=== PATIENT | male | born 1955 | race African-American/Black ===

== ENCOUNTER 2016-08-18 11:26 | Emergency (ER) | payer OTHER, MEDICARE ==
[~2016-08-18] VITALS: Ht 172.7 cm; Wt 100.0 kg
[~2016-08-18 11:26] MED LIST: LISI-357 PO; PHEN12.5 PR
[2016-08-18 11:29] VITALS: BP 130/86; PULSE 61; RESP 17; TEMP 98.2; O2SAT 98
[2016-08-18 11:44] VITALS: O2SAT 99
--- NOTE | 2016-08-18 12:04 | PD ---
HPI Chief Complaint: Complaint Time Seen by Provider: 11:39 Travel History International Travel<30 days: No Contact w/Intl Traveler<30days: No Traveled to known affect area: No History of Present Illness HPI 61 y/o male presents with intermittent bleeding and clots in his urine since his procedure last week. He states they removed a flap from his prostate to help him urinate. He states today the bleeding got heavier and he felt like he was gonna pass out. He states Dr. sandhu did the procedure and he followed with him on and everything was going okay. He states that he had the catheter removed a couple days after the procedure. He states that he has no other concurrent complaints. He states he is able to urinate but there is a large amount of blood. PFSH Past Medical History Arthritis: Yes Heart Rhythm Problems: No Cancer: No Cardiac Catheterization: No Cardiovascular Problems: No High Cholesterol: No Congestive Heart Failure: No Diabetes: No Diminished Hearing: No Endocrine: No Gastrointestinal Disorders: Yes (GERD, REFLUX) GERD: Yes Glaucoma: Yes Genitourinary: Yes (BPH) Hepatitis: No Hiatal Hernia: Yes Hypertension: Yes Immune Disorder: No Musculoskeletal: Yes (OSTEOARTHRITIS) Neurologic: No Psychiatric: No Reproductive: No Respiratory: Yes (ASTHMA CHILD) Myocardial Infarction: No Thyroid Disease: No Tetanus Vaccination: < 5 Years Influenza Vaccination: No Past Surgical History Abdominal Surgery: No AICD: No Body Medical Devices: SCREWS LT ELBOW Cardiac Surgery: No Coronary Artery Bypass Graft: No Ear Surgery: No Endocrine Surgery: No Eye Surgery: Yes (CARTACT LT, GLAUCOMA LT EYE) Genitourinary Surgery: Yes (PROSTATE BIOPSY, TURP) Gynecologic Surgery: No Joint Replacement: No Oral Surgery: No Pacemaker: No Thoracic Surgery: No Other Surgery: Yes Social History Alcohol Use: No Tobacco Use: No Substance Use: No Allergies-Medications (Allergen,Severity, Reaction): Coded Allergies: No Known Allergies (Verified , 08/18/16) Reported Meds & Prescriptions Reported Meds & Active Scripts Active Macrobid (Nitrofurantoin Monoh/Nitrofur Macro) 100 Mg Cap 100 Mg PO BID 7 Days Review of Systems Except as stated in HPI: all other systems reviewed are Neg Physical Exam Narrative GENERAL: Well-nourished, well-developed patient. SKIN: Warm and dry. HEAD: Normocephalic and atraumatic. EYES: No injection or drainage. ENT: No nasal drainage noted. NECK: Supple, trachea midline. CARDIOVASCULAR: Regular rate and rhythm RESPIRATORY: No increased effort. No accessory muscle use. GASTROINTESTINAL: Abdomen soft, non-tender, nondistended. NEUROLOGICAL: Awake and alert. Moves all extremities. Normal speech. Data Data Last Documented VS Vital Signs Date Time Temp Pulse Resp B/P Pulse Ox O2 Delivery O2 Flow Rate FiO2 08/18/16 13:18 63 16 132/83 99 08/18/16 11:44 Room Air 08/18/16 11:29 98.2 Orders Complete Blood Count With Diff (08/18/16 11:43) Basic Metabolic Panel (Bmp) (08/18/16 11:43) Act Partial Throm Time (Ptt) (08/18/16 11:43) Prothrombin Time / Inr (Pt) (08/18/16 11:43) Iv Access Insert/Monitor (08/18/16 11:43) Ecg Monitoring (08/18/16 11:43) Oximetry (08/18/16 11:43) Urinalysis - C+S If Indicated (08/18/16 11:46) Urine Culture (08/18/16 11:00) Labs Laboratory Tests Test 08/18/16 08/18/16 11:00 12:00 Urine Color YELLOW Urine Turbidity CLEAR Urine pH 5.5 Urine Specific [place] 1.013 Urine Protein 30 mg/dL Urine Glucose (UA) NEG mg/dL Urine Ketones NEG mg/dL Urine Occult Blood LARGE Urine Nitrite NEG Urine Bilirubin NEG Urine Urobilinogen LESS THAN 2.0 MG/DL Urine Leukocyte Esterase LARGE Urine RBC /hpf Urine WBC 56 /hpf Urine Bacteria OCC /hpf Microscopic Urinalysis Comment CULTURE INDICATED White Blood Count 6.9 TH/MM3 Red Blood Count 4.31 MIL/MM3 Hemoglobin 13.5 GM/DL Hematocrit 39.6 % Mean Corpuscular Volume 92.0 FL Mean Corpuscular Hemoglobin 31.3 PG Mean Corpuscular Hemoglobin 34.0 % Concent Red Cell Distribution Width 12.8 % Platelet Count 359 TH/MM3 Mean Platelet Volume 6.4 FL Neutrophils (%) (Auto) 59.6 % Lymphocytes (%) (Auto) 28.5 % Monocytes (%) (Auto) 8.6 % Eosinophils (%) (Auto) 2.6 % Basophils (%) (Auto) 0.7 % Neutrophils # (Auto) 4.1 TH/MM3 Lymphocytes # (Auto) 2.0 TH/MM3 Monocytes # (Auto) 0.6 TH/MM3 Eosinophils # (Auto) 0.2 TH/MM3 Basophils # (Auto) 0.1 TH/MM3 CBC Comment DIFF FINAL Differential Comment Prothrombin Time 10.8 SEC Prothromb Time International 1.0 RATIO Ratio Activated Partial 28.0 SEC Thromboplast Time Sodium Level 139 MEQ/L Potassium Level 4.3 MEQ/L Chloride Level 106 MEQ/L Carbon Dioxide Level 28.0 MEQ/L Anion Gap 5 MEQ/L Blood Urea Nitrogen 19 MG/DL Creatinine 1.66 MG/DL Estimat Glomerular Filtration 51 ML/MIN Rate Random Glucose 99 MG/DL Calcium Level 9.0 MG/DL [facility] Medical Decision Making Medical Screen Exam Complete: Yes Emergency Medical Condition: Yes Medical Record Reviewed: Yes (past history confirmed) Interpretation(s) CBC & BMP Diagram 08/18/16 12:00 ua with uti Differential Diagnosis UTI, postop bleeding, renal failure, stone Narrative Course Will check blood work, urinalysis and discuss with his urologist ed workup with uti, able to urinate her on own without difficulty, labs and vitals stable, Patient denies any new complaints, all questions answered. Patient knows that follow up is incumbent on them and to return to the emergency room immediately if new or worsening symptoms develop. Patient given strict return precautions, vitals reviewed and are normal, agrees to further workup as an outpatient. Physician Communication Physician Communication dr kaur states if patient able to urinate no need for catheter. If patient cannot urinate he can have catheter placed and follow in the office tomorrow if everything looks okay. Diagnosis Primary Impression: UTI (urinary tract infection) Qualified Code: N39.0 - Urinary tract infection with hematuria, site unspecified Patient Instructions: General Instructions Additional Instructions: return as needed, follow with urologist tommorrow, tylenol as needed Med/Other Pt SpecificInfo: Prescription(s) given Scripts Nitrofurantoin Monohydrate Macrocrystals (Macrobid)100 Mg [id number] Mg PO BID 7 Days Prov:Andreia Deutsch MD 08/18/16 Disposition: 01 DISCHARGE HOME Condition: Stable Andreia Deutsch MD Aug 18, 2016 12:04
[2016-08-18 12:15] LABS: AUTOMATED NEUTROPHIL # 4.1 TH/MM3 (1.8-7.7); BASOPHIL # 0.1 TH/MM3 (0-0.2); BASOPHIL % 0.7 % (0.0-2.0); EOSINOPHIL # 0.2 TH/MM3 (0-0.4); EOSINOPHIL % 2.6 % (0.0-4.0); HEMATOCRIT 39.6 % (39.0-51.0); HEMO FLAGS DIFF FINAL; LYMPH % 28.5 % (9.0-44.0); MEAN CORPUSCULAR HEMOGLOBIN 31.3 PG (27.0-34.0); MONO % 8.6 % (0.0-8.0); NEUT % 59.6 % (16.0-70.0); PLATELET COUNT 359 TH/MM3 (150-450); RED BLOOD COUNT 4.31 MIL/MM3 (4.50-5.90); RED CELL DISTRIBUTION WIDTH 12.8 % (11.6-17.2); WHITE BLOOD COUNT 6.9 TH/MM3 (4.0-11.0)
[2016-08-18 12:23] LABS: PROTHROMBIN TIME - PATIENT 10.8 SEC (9.8-11.6)
[2016-08-18 12:40] LABS: BACTERIA, URINE OCC /hpf; BLOOD, URINE LARGE (NEG); COMMENT (UR) CULTURE INDICATED; CULTURE IF INDICATED CULTURE INDICATED; GLUCOSE,URINE NEG (NEG); KETONE, URINE NEG (NEG); NITRITE,URINE NEG (NEG); PH, URINE 5.5 (5.0-8.5); URINE COLOR YELLOW (YELLW/STRAW)
[2016-08-18 12:46] LABS: POTASSIUM 4.3 MEQ/L (3.5-5.1)
[2016-08-18] MEDS ORDERED: MACR100C2 PO (12:58)
[2016-08-18 13:18] VITALS: BP 132/83
== END 2016-08-18 13:20 | disposition home or self-care (01) ==
LOC: NEPE 11:26
DX: N39.0 Urinary tract infection, site not specified (principal); R31.9 Hematuria, unspecified
CPT/HCPCS: 80048; 81001; 85025; 85610; 85730; 87086; 99283

== ENCOUNTER 2016-10-06 04:58 | Emergency (ER) | payer MEDICARE, OTHER ==
[~2016-10-06] VITALS: Ht 172.7 cm; Wt 90.0 kg
[~2016-10-06 04:58] MED LIST changes: -LISI-357 PO; +MACR100C2 PO; -PHEN12.5 PR
[2016-10-06 05:00] VITALS: BP 172/79; PULSE 56; RESP 18; TEMP 98.2; O2SAT 95
[2016-10-06 05:17] VITALS: BP 158/76; PULSE 65; RESP 20; O2SAT 98
[2016-10-06] MEDS ORDERED: AMLO5TAB2 PO (05:24)
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
[2016-10-06] MEDS ORDERED: SODIUM CHLORIDE 0.9% FLUSH 10 ML FLUSH IVF PRN (05:30)
[2016-10-06] MEDS ORDERED: ONDANSETRON HCL 4 MG/2 ML VIAL IVP ONE (05:30)
[2016-10-06] MEDS ORDERED: HYDROmorphone HCL PF 1 MG/ML VIAL IVS ONE (05:30)
[2016-10-06 05:37] LABS: AUTOMATED NEUTROPHIL # 2.5 TH/MM3 (1.8-7.7); BASOPHIL % 0.4 % (0.0-2.0); EOSINOPHIL # 0.1 TH/MM3 (0-0.4); EOSINOPHIL % 2.1 % (0.0-4.0); HEMATOCRIT 39.6 % (39.0-51.0); HEMO FLAGS DIFF FINAL; LYMPH % 43.1 % (9.0-44.0); LYMPHOCYTE # 2.5 TH/MM3 (1.0-4.8); MEAN CELL VOLUME 90.7 FL (80.0-100.0); MEAN CORPUSCULAR HEMOGLOBIN 32.1 PG (27.0-34.0); MEAN CORPUSCULAR HGB CONC 35.4 % (32.0-36.0); MONO % 12.2 % (0.0-8.0); NEUT % 42.2 % (16.0-70.0); PLATELET COUNT 301 TH/MM3 (150-450); RED BLOOD COUNT 4.36 MIL/MM3 (4.50-5.90); RED CELL DISTRIBUTION WIDTH 12.6 % (11.6-17.2); WHITE BLOOD COUNT 5.9 TH/MM3 (4.0-11.0)
[2016-10-06 05:48] LABS: BICARBONATE 27.5 MEQ/L (21.0-32.0); POTASSIUM 3.9 MEQ/L (3.5-5.1)
--- NOTE | 2016-10-06 06:13 | RADRPT ---
EXAM DATE/TIME: 10/06/2016 05:40 [facility] COMPARISON: No previous studies available for comparison. INDICATIONS : Patient was woken up by numbness and pain in left arm. Pain starts in shoulder and radiates down thro ugh elbow. MEDICAL HISTORY : None. SURGICAL HISTORY : Elbow. ENCOUNTER: Initial ACUITY: 1 day PAIN SCORE: 10/10 LOCATION: Left Shoulder. FINDINGS: Multiple view examination of the left shoulder demonstrates no evidence of fracture or dislocation. The glenohumeral and acromioclavicular joints are maintained. There is normal range of motion betwee n internal and external rotation. Bony mineralization is normal. CONCLUSION: Normal examination for a patient of this age. Raymundo Vieira MD on October 06, 2016 at 6:11 Board Certified Radiologist. This report was verified electronically.
--- NOTE | 2016-10-06 06:14 | RADRPT ---
EXAM DATE/TIME: 10/06/2016 05:50 [facility] COMPARISON: No previous studies available for comparison. INDICATIONS : Patient was woken up by numbness and pain in left arm. Pain starts in shoulder and radiates down thro ugh elbow. MEDICAL HISTORY : None. SURGICAL HISTORY : Elbow. ENCOUNTER: Initial ACUITY: 1 day PAIN SCORE: 10/10 LOCATION: Left Elbow. FINDINGS: Multiple view examination of the left elbow demonstrates no soft tissue swelling, joint effusion, or fracture. The osseous structures are in normal alignment. Bony mineralization is normal. CONCLUSION: 1. No acute findings. Surgical anchor overlies distal humerus. Enthesopathic changes at the medial an d lateral epicondyles and the olecranon. Raymundo Vieira MD on October 06, 2016 at 6:12 Board Certified Radiologist. This report was verified electronically.
--- NOTE | 2016-10-06 06:14 | RADRPT ---
EXAM DATE/TIME: 10/06/2016 05:43 [facility] COMPARISON: No previous studies available for comparison. INDICATIONS : Patient was woken up by numbness and pain in left arm. Pain starts in shoulder and radiates down thro ugh elbow. MEDICAL HISTORY : None. SURGICAL HISTORY : None. Elbow. ENCOUNTER: Initial ACUITY: 1 day PAIN SCORE: 10/10 LOCATION: Left Humerus. FINDINGS: Two view examination of the left humerus demonstrates no evidence of fracture or dislocation. Bony m ineralization is normal. The soft tissue structures are intact. CONCLUSION: 1. No acute findings. Surgical anchor projecting over distal humerus. Raymundo Vieira MD on October 06, 2016 at 6:12 Board Certified Radiologist. This report was verified electronically.
[2016-10-06] MEDS ORDERED: METOCLOPRAMIDE HCL 10 MG/2 ML VIAL IV PUSH ONE (06:15)
[2016-10-06] MEDS ORDERED: HYDR-3533 PO (06:26)
[2016-10-06 06:32] VITALS: BP 137/69
--- NOTE | 2016-10-06 16:55 | EKG ---
Date Performed: 10/06/2016 Time Performed: 05:12:47 PTAGE: 61 years EKG: SINUS BRADYCARDIA WITH SINUS ARRHYTHMIA BORDERLINE ECG PREVIOUS TRACING : 03/06/2013 04.36 Compared to prior tracing no significant change DOCTOR: Bessy Ruiz Interpretating Date/Time 10/06/2016 16:52:01
== END 2016-10-06 06:38 | disposition home or self-care (01) ==
LOC: NEPC 04:58
DX: M25.512 Pain in left shoulder (principal); M25.612 Stiffness of left shoulder, not elsewhere classified; M25.622 Stiffness of left elbow, not elsewhere classified; R94.31 Abnormal electrocardiogram [ECG] [EKG]; I10 Essential (primary) hypertension; Z87.39 Personal history of other diseases of the musculoskeletal system and connective tissue; Z87.19 Personal history of other diseases of the digestive system; Z86.69 Personal history of other diseases of the nervous system and sense organs; Z87.438 Personal history of other diseases of male genital organs
CPT/HCPCS: 73030; 73060; 73080; 80048; 85025; 93005; 96374; 96375; 99283; J1170; J2405; J2765

== ENCOUNTER 2017-02-23 09:10 | Emergency (ER) | payer OTHER ==
[~2017-02-23] VITALS: Ht 175.3 cm; Wt 100.0 kg
[~2017-02-23 09:10] MED LIST changes: +AMLO5TAB2 PO; +HYDR-3533 PO; -MACR100C2 PO
[2017-02-23 09:12] VITALS: BP 148/76; PULSE 65; RESP 13; TEMP 97.2; O2SAT 95
--- NOTE | 2017-02-23 10:08 | RADRPT ---
EXAM DATE/TIME: 02/23/2017 09:57 [facility] COMPARISON: ELBOW LEFT COMPLETE (4 VWS), October 06, 2016, 5:50. INDICATIONS : Left posterior ankle pain, denies injury MEDICAL HISTORY : Previous left ankle fracture SURGICAL HISTORY : None. ENCOUNTER: Initial ACUITY: 1 day PAIN SCORE: 8/10 LOCATION: Left ankle FINDINGS: There is an old, healed fracture of the distal left fibula. There are extensive degenerative changes in the lateral compartment of the ankle. There are mild degenerative changes seen medially. There is depression of the talar dome on the lateral exam suggesting old fracture of the talus as wel l. There are moderate degenerative changes within the ankle. CONCLUSION: 1. Old, healed fracture of the lateral malleolus. 2. Moderate degenerative changes in the ankle with depression of the talar dome suggesting old talar fracture as well. Isidro Gaxiola MD on February 23, 2017 at 10:05 Board Certified Radiologist. This report was verified electronically.
--- NOTE | 2017-02-23 10:17 | PD ---
HPI Chief Complaint: Pain: Acute or Chronic Time Seen by Provider: 09:34 Travel History International Travel<30 days: No Contact w/Intl Traveler<30days: No Traveled to known affect area: No History of Present Illness HPI 62-year-old Afro-Indian male presents to emergency Department with onset pain and stiffness in the left ankle and heel over the past 2 days. Patient has previous history of fracture to this ankle years ago. Patient denies any specific injury at this time. Patient denies history of gout. He denies warmth , fever, chills, or other symptoms. 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 Patient has history of bilateral pes planus. Patient has no known drug allergies PFSH Past Medical History Arthritis: Yes Heart Rhythm Problems: No Cancer: No Cardiac Catheterization: No Cardiovascular Problems: No High Cholesterol: No Congestive Heart Failure: No Diabetes: No Diminished Hearing: No Endocrine: No Gastrointestinal Disorders: Yes (GERD, REFLUX) GERD: Yes Glaucoma: Yes Genitourinary: Yes (BPH) Hepatitis: No Hiatal Hernia: Yes Hypertension: Yes Immune Disorder: No Musculoskeletal: Yes (OSTEOARTHRITIS) Neurologic: No Psychiatric: No Reproductive: No Respiratory: Yes (ASTHMA CHILD) Myocardial Infarction: No Thyroid Disease: No Past Surgical History Abdominal Surgery: No AICD: No Body Medical Devices: SCREWS LT ELBOW Cardiac Surgery: No Coronary Artery Bypass Graft: No Ear Surgery: No Endocrine Surgery: No Eye Surgery: Yes (CARTACT LT, GLAUCOMA LT EYE) Genitourinary Surgery: Yes (PROSTATE BIOPSY, TURP) Gynecologic Surgery: No Joint Replacement: No Oral Surgery: No Pacemaker: No Thoracic Surgery: No Other Surgery: Yes Social History Alcohol Use: No Tobacco Use: No Substance Use: No Allergies-Medications (Allergen,Severity, Reaction): Coded Allergies: No Known Allergies (Verified , 10/06/16) Reported Meds & Prescriptions Reported Meds & Active Scripts Active Mapap Extra Strength (Acetaminophen) 500 Mg Tab 1,000 Mg PO Q6HR PRN Prednisone 20 Mg Tab 20 Mg PO BID 5 Days Lortab (Hydrocodone-Acetaminophen) 5-325 Mg Tab 1-2 Tab PO Q6H PRN Reported Amlodipine (Amlodipine Besylate) 5 Mg Tab 5 Mg PO DAILY Review of Systems Except as stated in HPI: all other systems reviewed are Neg General / Constitutional: No: Fever Eyes: No: Visual changes HENT: No: Headaches Cardiovascular: No: Chest Pain or Discomfort Respiratory: No: Shortness of Breath Gastrointestinal: No: Abdominal Pain Genitourinary: No: Dysuria Musculoskeletal: No: Pain Skin: No Rash Neurologic: No: Weakness Psychiatric: No: Depression Endocrine: No: Polydipsia Hematologic/Lymphatic: No: Easy Bruising Physical Exam Narrative GENERAL: Patient appears acute distress. SKIN: Warm and dry. Normal color. Normal turgor. No erythema. No signs of cellulitis. No open wounds or skin breakdown. HEAD: Atraumatic. Normocephalic. EYES: Pupils equal and round. No scleral icterus. No injection or drainage. ENT: No nasal bleeding or discharge. Mucous membranes pink and moist. Pharynx is clear. Airway is patent NECK: Trachea midline. Supple nontender. CARDIOVASCULAR: Regular rate and rhythm. RESPIRATORY: No accessory muscle use. Clear to auscultation. Breath sounds equal bilaterally. MUSCULOSKELETAL: Extremities without clubbing, cyanosis, or edema. Patient has obvious bilateral pes planus. There is no significant edema or swelling over the joint. There is no increased warmth with palpation. Patient does have tenderness with palpation over the left lateral malleolus and posterior ankle. NEUROLOGICAL: Awake and alert. No obvious cranial nerve deficits. Motor grossly within normal limits. Five out of 5 muscle strength in the arms and legs. Normal speech. PSYCHIATRIC: Appropriate mood and affect; insight and judgment normal. Data Data Last Documented VS Vital Signs Date Time Temp Pulse Resp B/P (MAP) Pulse Ox O2 Delivery O2 Flow Rate FiO2 02/23/17 09:12 97.2 65 13 148/76 (100) 95 Orders Orders Ankle, Complete ([id number]) (02/23/17 09:36) Ketorolac Inj (Toradol Inj) (02/23/17 10:30) Splint Or Brace Apply/Monitor (02/23/17 10:19) [facility] Medical Decision Making Medical Screen Exam Complete: Yes Emergency Medical Condition: Yes Medical Record Reviewed: Yes Differential Diagnosis Left ankle pain. Osteoarthritis. Possible gout. Possible fracture Narrative Course X-ray of the left ankle is obtained. Ankle x-ray shows old healed fibular fracture with localized arthritis in no acute findings are noted per radiologist. Patient is placed in a stirrup Velcro ankle splint for comfort. Patient given Toradol 60 mg IM. Patient will be given prednisone 20 mg twice a day for 5 days. Patient take Tylenol as well, 500 milligrams, 2 tabs every 6 hours when necessary pain. Patient follow with Dr. Xavier if symptoms persist or return if symptoms worsen. Diagnosis Primary Impression: Degenerative arthritis of left ankle Qualified Codes: M19.072 - Primary osteoarthritis, left ankle and foot Referrals: Hunter Xavier DPM as needed Patient Instructions: Ankle Stirrup Splint (ED), General Instructions, Osteoarthritis (ED) Additional Instructions: Ankle x-ray shows old healed fibular fracture with localized arthritis in no acute findings are noted per radiologist Patient will be given prednisone 20 mg twice a day for 5 days. Patient take Tylenol as well, 500 milligrams, 2 tabs every 6 hours when necessary pain. Patient follow with Dr. Xavier if symptoms persist or return if symptoms worsen. Med/Other Pt SpecificInfo: Prescription(s) given Scripts Acetaminophen (Mapap Extra Strength) 500 Mg Tab 1000 MG PO Q6HR Y for PAIN, #60 TAB 0 Refills Prov: Hardy Julio MD 02/23/17 Prednisone (Prednisone) 20 Mg Tab 20 MG PO BID for 5 Days, #10 TAB 0 Refills Prov: Hardy Julio MD 02/23/17 Disposition: 01 DISCHARGE HOME Condition: Stable Yimi Hairston Feb 23, 2017 10:17
[2017-02-23] MEDS ORDERED: PRED20 PO (10:19)
[2017-02-23] MEDS ORDERED: MAPA500T13 PO (10:19)
[2017-02-23] MEDS ORDERED: KETOROLAC TROMETHAMINE 60 MG/2 ML (IM) VIAL IM ONE (10:30)
== END 2017-02-23 11:18 | disposition home or self-care (01) ==
LOC: NEPK 09:10
DX: M19.072 Primary osteoarthritis, left ankle and foot (principal)
CPT/HCPCS: 73610; 96372; 99284; J1885; L1906

== ENCOUNTER 2017-08-02 17:45 | Emergency (ER) | payer MEDICARE, OTHER ==
[~2017-08-02] VITALS: Ht 172.7 cm; Wt 100.0 kg
[~2017-08-02 17:45] MED LIST changes: +MAPA500T13 PO; +PRED20 PO
[2017-08-02 17:47] VITALS: BP 151/80; PULSE 73; RESP 18; TEMP 98; O2SAT 98
--- NOTE | 2017-08-02 19:06 | PD ---
HPI Chief Complaint: Pain: Acute or Chronic Time Seen by Provider: 18:58 Travel History International Travel<30 days: No Contact w/Intl Traveler<30days: No Traveled to known affect area: No History of Present Illness HPI 62-year-old male here for evaluation of left ankle pain and swelling. The patient had a fracture of his left ankle that required ORIF several years ago. The hardware has since been removed. He has had increasing pain and swelling over the left ankle for the last 2 days. He has been walking on the treadmill, but denies any specific trauma recently. No fevers or chills. Pain is moderate to severe, constant, worse with weightbearing. He denies history of DVT or PE. No chest pain or dyspnea. PFSH Past Medical History Arthritis: Yes Heart Rhythm Problems: No Cancer: No Cardiac Catheterization: No Cardiovascular Problems: No High Cholesterol: No Congestive Heart Failure: No Diabetes: No Diminished Hearing: No Endocrine: No Gastrointestinal Disorders: Yes (GERD, REFLUX) GERD: Yes Glaucoma: Yes Genitourinary: Yes (BPH) Hepatitis: No Hiatal Hernia: Yes Hypertension: Yes Immune Disorder: No Musculoskeletal: Yes (OSTEOARTHRITIS) Neurologic: No Psychiatric: No Reproductive: No Respiratory: Yes (ASTHMA CHILD) Myocardial Infarction: No Thyroid Disease: No Past Surgical History Abdominal Surgery: No AICD: No Body Medical Devices: SCREWS LT ELBOW Cardiac Surgery: No Coronary Artery Bypass Graft: No Ear Surgery: No Endocrine Surgery: No Eye Surgery: Yes (CARTACT LT, GLAUCOMA LT EYE) Genitourinary Surgery: Yes (PROSTATE BIOPSY, TURP) Gynecologic Surgery: No Joint Replacement: No Oral Surgery: No Pacemaker: No Thoracic Surgery: No Other Surgery: Yes Social History Alcohol Use: No Tobacco Use: No Substance Use: No Allergies-Medications (Allergen,Severity, Reaction): Coded Allergies: No Known Allergies (Verified , 10/06/16) Reported Meds & Prescriptions Reported Meds & Active Scripts Active Mapap Extra Strength (Acetaminophen) 500 Mg Tab 1,000 Mg PO Q6HR PRN Prednisone 20 Mg Tab 20 Mg PO BID 5 Days Lortab (Hydrocodone-Acetaminophen) 5-325 Mg Tab 1-2 Tab PO Q6H PRN Reported Amlodipine (Amlodipine Besylate) 5 Mg Tab 5 Mg PO DAILY Review of Systems Except as stated in HPI: all other systems reviewed are Neg Physical Exam Narrative GENERAL: Well-developed, well-nourished, comfortable, no apparent distress. SKIN: Focused skin assessment warm/dry. HEAD: Atraumatic. Normocephalic. EYES: Pupils equal and round. No scleral icterus. No injection or drainage. ENT: Mucous membranes pink and moist. NECK: Trachea midline. No JVD. CARDIOVASCULAR: Regular rate and rhythm. RESPIRATORY: No accessory muscle use. Clear to auscultation. Breath sounds equal bilaterally. MUSCULOSKELETAL: Left ankle with mild diffuse edema with tenderness over the medial malleolus, lateral malleolus, and posterior ankle. Patient is able to plantarflex and dorsiflex the foot at the ankle joint, however the range of motion is limited. There is no warmth or erythema. All compartments in the left lower extremity are supple. NEUROLOGICAL: Awake and alert. No obvious cranial nerve deficits. Motor grossly within normal limits. Normal speech. PSYCHIATRIC: Appropriate mood and affect; insight and judgment normal. Data Data Last Documented VS Vital Signs Date Time Temp Pulse Resp B/P (MAP) Pulse Ox O2 Delivery O2 Flow Rate FiO2 08/02/17 19:10 58 18 141/69 (93) 99 Room Air 08/02/17 17:47 98.0 Orders Orders Ankle, Complete ([id number]) (08/02/17 ) Us Leg Venous Doppler (08/02/17 ) Acetamin-Hydrocod 325-5 Mg ([place] 5-325 (08/02/17 19:15) Crutches (08/02/17 ) MDM Medical Decision Making Medical Screen Exam Complete: Yes Emergency Medical Condition: Yes Differential Diagnosis Stress fracture, acute on chronic pain, osteoarthritis, DVT Narrative Course Left lower extremity venous duplex is negative for DVT. Left ankle x-ray: Remote fractures. No acute fracture. No significant change from February 2017. Mild osteoarthritis. Patient was made aware of all findings. He states he has a fracture boot at home that he will start wearing. I will provide him crutches. He was advised to follow-up with his window shade cutter and mounter Dr. Xavier this week. I will give him a short course of hydrocodone to help with his pain. Clinically there are no signs of infection. He was advised on when to return to the emergency department. He verbalizes understanding and agreement with plan. Diagnosis Primary Impression: Left ankle pain Qualified Codes: M25.572 - Pain in left ankle and joints of left foot Referrals: Hunter Xavier DPM 3 days Additional Instructions: Follow-up with your window shade cutter and mounter Dr. Xavier this week. Rest, ice, elevate your left ankle. Return to the emergency department for worsening symptoms or any other concerns. Scripts Hydrocodone-Acetaminophen (Hydrocodone-Acetaminophen) 5-325 mg Tab 1 TAB PO Q6H Y for PAIN, #15 TAB 0 Refills Prov: Dhruv Cross MD 08/02/17 Disposition: 01 DISCHARGE HOME Condition: Stable Dhruv Cross MD Aug 02, 2017 19:06
[2017-08-02 19:10] VITALS: BP 141/69; PULSE 58; RESP 18; O2SAT 99
[2017-08-02] MEDS ORDERED: ACETAMINOPHEN/HYDROcodone 325 MG/5 MG TAB PO ONE (19:15)
--- NOTE | 2017-08-02 19:50 | RADRPT ---
EXAM DATE/TIME: 08/02/2017 18:39 [facility] COMPARISON: No previous studies available for comparison. INDICATIONS : Patient complains of left ankle pain and unable to bear weight on left leg. Patient had injury 9 year s ago. MEDICAL HISTORY : None. SURGICAL HISTORY : ORIF lt ankle. ENCOUNTER: Initial ACUITY: 1 week PAIN SCORE: 9/10 LOCATION: Left Ankle FINDINGS: Remote fractures distal fibula with some residual deformity. Mild osteoarthritis of the ankle joint. No acute fracture or dislocation. CONCLUSION: 1. Remote fractures. No acute fracture. No significant change from February 2017. Raymundo Vieira MD on August 02, 2017 at 19:44 Board Certified Radiologist. This report was verified electronically.
--- NOTE | 2017-08-02 19:51 | RADRPT ---
EXAM DATE/TIME: 08/02/2017 19:29 [facility] COMPARISON: No previous studies available for comparison. INDICATIONS : Left leg pain. MEDICAL HISTORY : Hypertension. Gastroesophageal reflux disease. Benign prostatic hyperplasia, (BPH) Glaucoma. Hiata l hernia. Arthritis. Claustrophobia. Nausea. SURGICAL HISTORY : Left elbow surgery. Right hand surgery. Lt fibula surgery. ENCOUNTER: Initial ACUITY: 1 week PAIN SCORE: 4/10 LOCATION: Left leg. TECHNIQUE: Venous ultrasound of the leg was performed from the inguinal ligament to the proximal calf. Real-jaspal e, color Doppler and spectral tracing, compression and augmentation techniques were used. FINDINGS: There is normal compressibility of the deep venous system from the inguinal region to the proximal ca lf. No echogenic clot is seen in the lumen of the common femoral, femoral, popliteal, and posterior tibial veins. There is a normal response of the venous system to proximal and distal augmentation an d respiration. CONCLUSION: 1. No DVT identified. Isidro Gaxiola MD on August 02, 2017 at 19:48 Board Certified Radiologist. This report was verified electronically.
[2017-08-02] MEDS ORDERED: HYDR-3516 PO (20:08)
== END 2017-08-02 20:25 | disposition home or self-care (01) ==
LOC: NEPD 17:45
DX: M25.572 Pain in left ankle and joints of left foot (principal); R60.9 Edema, unspecified; I10 Essential (primary) hypertension; H40.9 Unspecified glaucoma; K21.9 Gastro-esophageal reflux disease without esophagitis; K44.9 Diaphragmatic hernia without obstruction or gangrene; N40.0 Benign prostatic hyperplasia without lower urinary tract symptoms; M19.90 Unspecified osteoarthritis, unspecified site
CPT/HCPCS: 73610; 93971; 99284; E0113